=== PATIENT | male | born 1950 | race Caucasian/White ===

== ENCOUNTER 2017-03-23 00:42 | Emergency (ER) | payer MEDICARE, BC, OTHER, MEDICAID ==
[2017-03-23] MEDS ORDERED: Sodium Chloride 0.9% 10 ML Syringe FLUSH PRN (00:53)
[2017-03-23] MEDS ORDERED: Sodium Chloride 0.9% 1,000 ML IV ONE (00:53)
--- NOTE | 2017-03-23 00:56 | EDM.PDOC ---
ED HPI GENERAL MEDICAL PROBLEM - General Chief Complaint: Respiratory Problem Stated Complaint: Increased respirations, dspnea Time Seen by Provider: 03/23/17 00:47 Source of Information: Reports: Patient, EMS Notes Reviewed, Fpc Records, RN, RN Notes Reviewed History Limitations: Reports: No Limitations - History of Present Illness INITIAL COMMENTS - FREE TEXT/NARRATIVE: Patient is [facility] the ED at [facility] with concerns of possible aspiration pneumonia. Patient states he feels his breathing is more labored than usual and tachypnic. No cough. No chest pain. Patient states "I always have trouble with my bowels." No new focal neurological deficits outside of those from a previous CVA. No headache. No dizziness. Patient states he was just discharged from [facility] s/p right hemiarthroplasty. Patient apparently fell out of his wheelchair on 03/14/2017. Patient was diagnosed with a femoral fracture secondary to mechanical fall. Onset: Today Right hip Pain Score (Numeric/FACES): 5 - Related Data Allergies Allergy/AdvReac Type Severity Reaction Status Date / Time No Known Allergies Allergy Verified 03/23/17 01:28 Home Meds: Home Meds Acetaminophen [Tylenol] 650 mg PO Q4HR PRN 07/02/13 [History] Albuterol/Ipratropium [DuoNeb 3.0-0.5 MG/3 ML] 2.5 mg INH Q4HR PRN 07/02/13 [ History] Bisacodyl [Dulcolax] 1 tab PO BID PRN 07/02/13 [History] Calcium Carbonate/Vitamin D3 [Calcium 600 + Vit D 400] 1 tab PO DAILY 07/02/13 [ History] Clopidogrel [Plavix] 75 mg PO DAILY 07/02/13 [History] Fluticasone/Salmeterol [Advair 500-50] 1 puff INH BID 07/02/13 [History] Simvastatin [Zocor] 80 mg PO BEDTIME 07/02/13 [History] Atropine 1% [Isopto Atropine 1% Ophth Soln] 2 drop SL TID PRN #1 08/09/13 [Rx] Metoprolol Tartrate 12.5 mg PO BID #60 08/09/13 [Rx] Polyethylene Glycol 3350 [MiraLAX] 17 gm PO DAILY 03/07/15 [History] Sertraline [Zoloft] 25 mg PO BEDTIME 03/07/15 [History] Tiotropium [Spiriva HandiHaler] 1 cap INH DAILY 03/07/15 [History] traZODone HCl [Trazodone HCl] 25 mg PO BEDTIME 03/07/15 [History] Bisacodyl 10 mg RC DAILY PRN 03/23/17 [History] Doxycycline [Vibramycin] 100 mg PO Q12HR 7 Days #14 cap 03/23/17 [Rx] Hydrocodone/Acetaminophen [Hydrocodon-Acetaminophen 5-325] 1 each PO Q4HR PRN [History] Lactulose [Chronulac] 10 gm PO BID 03/23/17 [History] Loperamide HCl [Imodium A-D] 2 mg PO ASDIRECTED 03/23/17 [History] Pantoprazole Sodium 40 mg PO DAILY 03/23/17 [History] hydrOXYzine Pamoate [Hydroxyzine Pamoate] 25 mg PO Q4H PRN 03/23/17 [History] metFORMIN HCl [Metformin HCl] 500 mg PO BID 03/23/17 [History] Social & Family History - Tobacco Use Smoking Status *Q: Former Smoker Years of Tobacco use: 49 Used Tobacco, but Quit: Yes Month Tobacco Last Used: april Second Hand Smoke Exposure: No - Alcohol Use Days Per Week of Alcohol Use: 0 - Recreational Drug Use Recreational Drug Use: No Drug Use in Last 12 Months: No Recreational Drug Last Use: MANY YEARS AGO - Living Situation & Occupation Living situation: Reports: , Extended Care Facility ED ROS GENERAL - Review of Systems Review Of Systems: See Below Constitutional: Reports: Fever, Chills, Weakness HEENT: Reports: No Symptoms Respiratory: Reports: Shortness of Breath. Denies: Cough, Sputum Cardiovascular: Denies: Chest Pain, Palpitations GI/Abdominal: Denies: Abdominal Pain, Nausea, Vomiting Skin: Reports: No Symptoms Neurological: Reports: No Symptoms. Denies: Dizziness, Headache ED EXAM, GENERAL - Physical Exam Exam: See Below Exam Limited By: No Limitations General Appearance: Alert, No Apparent Distress, Obese Neck: Supple Respiratory/Chest: No Respiratory Distress, Decreased Breath Sounds Cardiovascular: Normal Peripheral Pulses, Regular Rate, Rhythm Peripheral Pulses: 2+: Radial (L), Radial (R) GI/Abdominal: Abnormal Bowel Sounds (Hypoactive) Neurological: Alert, Oriented, Other (patient has deficits from previous CVA but no new symptoms) Skin Exam: Warm, Dry, Intact, Normal Color, No Rash Course - Vital Signs Last Recorded V/S: Last Vital Signs Temp 38.9 C H 03/23/17 02:05 Pulse 120 H 03/23/17 02:05 Resp 24 H 03/23/17 02:05 BP 155/83 H 03/23/17 02:05 Pulse Ox 92 L 03/23/17 02:05 - Orders/Labs/Meds Orders: Active Orders 24 hr Category Date Time Status Chest 1V Frontal [CR] Stat Exams 03/23/17 00:52 Taken CULTURE BLOOD [BC] Stat Lab 03/23/17 01:21 Results CULTURE BLOOD [BC] Stat Lab 03/23/17 02:02 Results UA W/MICROSCOPIC [URIN] Stat Lab 03/23/17 00:54 Uncollected Ertapenem [INVanz] 1 gm Med 03/23/17 03:02 Ordered Sodium Chloride 0.9% [Normal Saline] 100 ml IV ONETIME Sodium Chloride 0.9% [Saline Flush] Med 03/23/17 00:53 Active 10 ml FLUSH ASDIRECTED PRN Blood Culture x2 Reflex Set [OM.PC] Stat Oth 03/23/17 00:49 Ordered Peripheral IV Insertion Adult [OM.PC] Routine Oth 03/23/17 00:53 Ordered Medication Orders Ertapenem 1 gm/ Sodium (Chloride) 100 mls @ 200 mls/hr IV ONETIME ONE Stop: 03/23/17 03:31 Sodium Chloride (Saline Flush) 10 ml FLUSH ASDIRECTED PRN PRN Reason: Keep Vein Open Labs: Laboratory Tests 03/23/17 03/23/17 03/23/17 Range/Units 01:21 01:21 01:21 WBC 13.3 H (4.0-10.0) x10^3/uL RBC 4.10 L (4.5-6.0) x10^6/uL Hgb 10.6 L D (14.0-18.0) g/dL Hct 34.0 L (40.0-52.0) % MCV 82.9 D (78.0-93.0) fL MCH 25.9 L (26.0-32.0) pg MCHC 31.2 L (32.0-36.0) g/dL RDW Coeff of Dona 15.4 H (10.0-15.0) % Plt Count 247 (130-400) x10^3/uL Add Manual Diff Yes Neutrophils % (Manual) 80 (50-80) % Band Neutrophils % 2 (0-6) % Lymphocytes % (Manual) 8 L (25-50) % Monocytes % (Manual) 7 (2-11) % Eosinophils % (Manual) 3 (0-4) % Toxic Granulation 1+ slight H Platelet Estimate Adequate Giant Platelets Rare H Polychromasia Rare Anisocytosis 2+ moderate H Ovalocytes 1+ slight H POC ABG pH (7.35-7.45) POC ABG pCO2 (35-45) mmHG POC ABG pO2 (80-105) mmHG POC ABG HCO3 (22-26) mmol/L POC ABG Total CO2 (23-27) mmol/L POC ABG O2 Sat (95-98) % POC ABG Base Excess (-2-3) mmol/L POC FiO2 Sodium 137 (136-145) mmol/L Potassium 3.9 (3.5-5.1) mmol/L Chloride 101 (98-107) mmol/L Carbon Dioxide 27 (21-32) mmol/L BUN 15 (7-18) mg/dL Creatinine 1.2 (0.70-1.30) mg/dL Est Cr Clr Drug Dosing TNP Estimated GFR (MDRD) > 60 Glucose 174 H (74-106) mg/dL Lactic Acid 2.3 H (0.4-2.0) mmol/L Calcium 9.9 (8.5-10.1) mg/dL Phosphorus 2.0 L (2.6-4.7) mg/dL Magnesium 1.4 L (1.8-2.4) mg/dL C-Reactive Protein 2.8 H (<=0.9) mg/dL POC Result Comm 03/23/17 Range/Units 02:15 WBC (4.0-10.0) x10^3/uL RBC (4.5-6.0) x10^6/uL Hgb (14.0-18.0) g/dL Hct (40.0-52.0) % MCV (78.0-93.0) fL MCH (26.0-32.0) pg MCHC (32.0-36.0) g/dL RDW Coeff of Dona (10.0-15.0) % Plt Count (130-400) x10^3/uL Add Manual Diff Neutrophils % (Manual) (50-80) % Band Neutrophils % (0-6) % Lymphocytes % (Manual) (25-50) % Monocytes % (Manual) (2-11) % Eosinophils % (Manual) (0-4) % Toxic Granulation Platelet Estimate Giant Platelets Polychromasia Anisocytosis Ovalocytes POC ABG pH 7.453 H (7.35-7.45) POC ABG pCO2 34 L (35-45) mmHG POC ABG pO2 54 L* (80-105) mmHG POC ABG HCO3 23 (22-26) mmol/L POC ABG Total CO2 24 (23-27) mmol/L POC ABG O2 Sat 90 L (95-98) % POC ABG Base Excess -1 (-2-3) mmol/L POC FiO2 0.21 Sodium (136-145) mmol/L Potassium (3.5-5.1) mmol/L Chloride (98-107) mmol/L Carbon Dioxide (21-32) mmol/L BUN (7-18) mg/dL Creatinine (0.70-1.30) mg/dL Est Cr Clr Drug Dosing Estimated GFR (MDRD) Glucose (74-106) mg/dL Lactic Acid (0.4-2.0) mmol/L Calcium (8.5-10.1) mg/dL Phosphorus (2.6-4.7) mg/dL Magnesium (1.8-2.4) mg/dL C-Reactive Protein (<=0.9) mg/dL POC Result Comm Called critical res Meds: Medications Generic Name Dose Route Start Last Admin Trade Name Freq PRN Reason Stop Dose Admin Ertapenem 1 gm/ Sodium 100 mls @ 200 mls/hr 03/23/17 03:02 Chloride IV 03/23/17 03:31 ONETIME ONE Sodium Chloride 10 ml 03/23/17 00:53 Saline Flush FLUSH ASDIRECTED PRN Keep Vein Open Discontinued Medications Generic Name Dose Route Start Last Admin Trade Name Freq PRN Reason Stop Dose Admin Sodium Chloride 1,000 mls @ 999 mls/hr 03/23/17 00:53 03/23/17 02:00 Normal Saline IV 03/23/17 01:53 999 mls/hr ONETIME ONE Administration Morphine Sulfate 2 mg 03/23/17 02:16 03/23/17 02:25 Morphine IVPUSH 03/23/17 02:17 2 mg ONETIME ONE Administration - Radiology Interpretation Free Text/Narrative:: CXR: Normal chest x-ray See scanned report in EMR Departure - Departure Time of Disposition: 02:58 Disposition: DC/Tfer to Assisted Care 63 Condition: Good Clinical Impression: Fever and chills Leukocytosis Qualifiers: Leukocytosis type: unspecified Qualified Code(s): D72.829 - Elevated white blood cell count, unspecified - Discharge Information Prescriptions: Doxycycline [Vibramycin] 100 mg PO Q12HR 7 Days #14 cap Instructions: Fever, Adult Referrals: Monroe Waters MD [Physician] - Forms: ED Department Discharge Additional Instructions: 1. Stay well hydrated and rest 2. Take antibiotic for the full coarse, even if you are feeling better 3. Call [facility] tomorrow to have your incision looked at 4. Call with any questions ED Communication - ED Communication Date/Time Date: 03/23/17 Time Called: 02:57 - Discussed Case With (1) Discussed Case With (1): Outpatient Provider Person/s Notified (1): Brooke Cornell - Conversation Summary Outpatient Provider Agreed to Follow-up on this Patient: Yes - Problem List Review Problem List Initiated/Reviewed/Updated: Yes - My Orders Last 24 Hours: My Active Orders 03/23/17 00:49 Blood Culture x2 Reflex Set [OM.PC] Stat 03/23/17 00:52 Chest 1V Frontal [CR] Stat 03/23/17 00:53 Sodium Chloride 0.9% [Saline Flush] 10 ml FLUSH ASDIRECTED PRN Peripheral IV Insertion Adult [OM.PC] Routine 03/23/17 00:54 UA W/MICROSCOPIC [URIN] Stat 03/23/17 01:21 CULTURE BLOOD [BC] Stat 03/23/17 02:02 CULTURE BLOOD [BC] Stat 03/23/17 03:02 Ertapenem [INVanz] 1 gm Sodium Chloride 0.9% [Normal Saline] 100 ml IV ONETIME - Assessment/Plan Last 24 Hours: My Active Orders 03/23/17 00:49 Blood Culture x2 Reflex Set [OM.PC] Stat 03/23/17 00:52 Chest 1V Frontal [CR] Stat 03/23/17 00:53 Sodium Chloride 0.9% [Saline Flush] 10 ml FLUSH ASDIRECTED PRN Peripheral IV Insertion Adult [OM.PC] Routine 03/23/17 00:54 UA W/MICROSCOPIC [URIN] Stat 03/23/17 01:21 CULTURE BLOOD [BC] Stat 03/23/17 02:02 CULTURE BLOOD [BC] Stat 03/23/17 03:02 Ertapenem [INVanz] 1 gm Sodium Chloride 0.9% [Normal Saline] 100 ml IV ONETIME
[2017-03-23] MEDS ORDERED: Morphine 2 MG/ML Syringe IVPUSH ONE (02:16)
[2017-03-23 02:21] VITALS: BP 155/83
[2017-03-23 02:27] LABS: CHLORIDE,CL 101 mmol/L (98-107); SODIUM,NA 137 mmol/L (136-145)
[2017-03-23] MEDS ORDERED: Ertapenem 1 GM in Sodium Chloride 0.9% 100 ML IV ONE (03:02)
== END 2017-03-23 04:20 ==
LOC: VM.ED 00:42
DX: D72.829 Elevated white blood cell count, unspecified (principal); R50.9 Fever, unspecified; Z79.899 Other long term (current) drug therapy; Z87.891 Personal history of nicotine dependence; Z86.73 Personal history of transient ischemic attack (TIA), and cerebral infarction without residual deficits
CPT/HCPCS: 36415; 36600; 71010; 80048; 82803; 83605; 83735; 84100; 85025; 86140; 87040; 96361; 96365; 96375; 99284; 99285; J1335; J2270; J7030; J7050

== ENCOUNTER 2019-07-10 09:07 | Day surgery (SDC) | payer MEDICARE, BC, OTHER, MEDICAID ==
[~2019-07-10 09:07] MED LIST: Sodium Chloride 0.9% 10 ML Syringe FLUSH PRN
[2019-07-10] MEDS ORDERED: Propofol 200 MG/20 ML SDV ONE ×2 (10:07→12:15)
[2019-07-10] MEDS ORDERED: fentaNYL 100 MCG/2 ML SDV ONE (10:07)
[2019-07-10] MEDS: Lactated Ringers 1,000 ML IV SCH (10:20)
[2019-07-10 14:15] VITALS: BP 108/78; PULSE 62
--- NOTE | 2019-07-10 16:23 | OR ---
PREOPERATIVE DIAGNOSIS: Positive FIT stool card. POSTOPERATIVE DIAGNOSES: 1. Minimal diverticulosis. 2. Floppy redundant tortuous colon. PROCEDURE: Colonoscopy. SURGEON: Tommy Pizarro M.D. ANESTHESIA: Monitored anesthesia care. BOWEL PREP: Fair to poor with particulate stool (nuts) present. The patient did require significant time suctioning for adequate visualization. Russell is a 69-year-old male who was brought to the endoscopy suite after discussing risks and benefits of the procedure. Informed consent was obtained for conscious sedation and colonoscopy with or without biopsy and/or polypectomy. We also discussed possibility of missed lesions. Pre-procedure exam was unremarkable. IV, oxygen, and monitors were placed. The patient was placed in the left lateral decubitus position. Sedation was administered and a digital rectal exam was performed which was unremarkable. Colonoscope was passed into the rectum and slowly advanced all the way to the cecum. Patient did have a very floppy, redundant, tortuous colon. This did require scope maneuvering as well as 2 people providing some abdominal pressure and palpation. Cecum was viewed and photographed. The colonoscope was slowly withdrawn and the mucosa was closed observed in a direct circumferential manner. The ascending colon was unremarkable. The transverse colon was unremarkable. The descending colon was unremarkable. The sigmoid colon revealed some minimal diverticulosis. Retroflexion was performed and rectal mucosa was unremarkable. Scope was removed. The patient tolerated the procedure well. The patient was monitored until that baseline status. Discharge instructions were reviewed and the patient was discharged in good condition. COMPLICATIONS: None. TOTAL TIME: 45 minutes. ESTIMATED BLOOD LOSS: None. RECOMMENDATIONS/FOLLOW-UP: The patient is good for the next 10 years on colon cancer screening. He can go ahead and resume his Plavix tomorrow. I would like to kindly thank Dr. Waters for this referral. DMB: 07/10/2019 13:10:36 MODL: 07/10/2019 16:19:11 /[id number]
== END 2019-07-10 14:00 | disposition home or self-care (01) ==
LOC: VM.SDS 09:07
PROVIDERS: ATTEND Family Medicine
DX: K57.30 Diverticulosis of large intestine without perforation or abscess without bleeding (principal); Q43.8 Other specified congenital malformations of intestine; E11.9 Type 2 diabetes mellitus without complications; J44.9 Chronic obstructive pulmonary disease, unspecified; E78.2 Mixed hyperlipidemia; K76.0 Fatty (change of) liver, not elsewhere classified; F41.1 Generalized anxiety disorder; K21.9 Gastro-esophageal reflux disease without esophagitis; I10 Essential (primary) hypertension; Z87.891 Personal history of nicotine dependence; Z86.73 Personal history of transient ischemic attack (TIA), and cerebral infarction without residual deficits; Z79.899 Other long term (current) drug therapy
CPT/HCPCS: 82962; J2704; J3010; J7120

== ENCOUNTER 2019-10-26 09:20 | Emergency (ER) | payer MEDICARE, BC, OTHER, MEDICAID ==
--- NOTE | 2019-10-26 10:41 | EDM.PDOC ---
ED HPI GENERAL MEDICAL PROBLEM - General Chief Complaint: General Stated Complaint: Sent by detention secondary to decreased eating Time Seen by Provider: 10/26/19 10:05 Source of Information: Reports: Patient, EMS, Custodial Records History Limitations: Reports: No Limitations - History of Present Illness INITIAL COMMENTS - FREE TEXT/NARRATIVE: Patient was sent over via EMS from the detention secondary to decreased eating over the last couple of days week. Patient was seen by travel nurse today and it was decided that he needed to be sent to the emergency room for further evaluation secondary to not eating well. Patient was seen by his primary care provider Dr. Damico a few days ago with a normal checkup Per the patient states he feels fine he has no complaints or signs or symptoms states he gets nauseated every now and then which he did today after drinking a sip of water and has been ongoing since he had a stroke with nothing new. I completely reviewed all systems with the patient and he states he has no complaints he is alert and oriented x4 he is neurologically intact only thing he is asking for his breakfast seeing how he missed being sent here he wants a [employer] Skyler cheese egg croissant and hashbrowns. And a diet minute Patient states he does not like the food at the detention and his sister usually brings him meals from out in town Associated Symptoms: Reports: No Other Symptoms - Related Data Allergies Allergy/AdvReac Type Severity Reaction Status Date / Time No Known Allergies Allergy Verified 10/26/19 10:01 Home Meds: Home Meds Acetaminophen [Tylenol] 650 mg PO Q4HR PRN 07/02/13 [History] Albuterol/Ipratropium [DuoNeb 3.0-0.5 MG/3 ML] 2.5 mg INH Q4HR PRN 07/02/13 [ History] Calcium Carbonate/Vitamin D3 [Calcium 600 + Vit D 400] 1 tab PO DAILY 07/02/13 [ History] Clopidogrel [Plavix] 75 mg PO DAILY 07/02/13 [History] Fluticasone/Salmeterol [Advair 500-50] 1 puff INH BID 07/02/13 [History] Simvastatin [Zocor] 80 mg PO BEDTIME 07/02/13 [History] bisacodyL [Dulcolax] 1 tab PO BID PRN 07/02/13 [History] Atropine 1% [Isopto Atropine 1% Ophth Soln] 2 drop SL TID PRN #1 08/09/13 [Rx] Metoprolol Tartrate 12.5 mg PO BID #60 08/09/13 [Rx] Polyethylene Glycol 3350 [MiraLAX] 17 gm PO DAILY 03/07/15 [History] Sertraline [Zoloft] 25 mg PO BEDTIME 03/07/15 [History] Tiotropium [Spiriva HandiHaler] 1 cap INH DAILY 03/07/15 [History] traZODone HCl [Trazodone HCl] 25 mg PO BEDTIME 03/07/15 [History] Bisacodyl 10 mg RC DAILY PRN 03/23/17 [History] Hydrocodone/Acetaminophen [Hydrocodon-Acetaminophen 5-325] 1 each PO Q4HR PRN [History] Lactulose [Chronulac] 10 gm PO BID 03/23/17 [History] Loperamide HCl [Imodium A-D] 2 mg PO ASDIRECTED 03/23/17 [History] Pantoprazole Sodium 40 mg PO DAILY 03/23/17 [History] hydrOXYzine pamoate [Hydroxyzine Pamoate] 25 mg PO Q4H PRN 03/23/17 [History] metFORMIN HCl [Metformin HCl] 500 mg PO BID 03/23/17 [History] Budesonide/Formoterol [Symbicort 160-4.5 MCG] 2 puff PO BID 07/02/19 [History] Cholecalciferol (Vitamin D3) [Vitamin D3] 1,000 units PO DAILY 07/02/19 [History ] Pantoprazole Sodium [Protonix] 40 mg PO DAILY 07/02/19 [History] Umeclidinium Brm/Vilanterol Tr [Anoro Ellipta 62.5-25 MCG] 1 puff DAILY [History] lisinopriL [Zestril] 5 mg PO DAILY 07/02/19 [History] Past Medical History HEENT History: Reports: Hard of Hearing Cardiovascular History: Reports: High Cholesterol, Hypertension Respiratory History: Reports: COPD, Pneumonia, Recurrent Gastrointestinal History: Reports: Chronic Constipation, GERD, Other (See Below) Other Gastrointestinal History: Dysphagia, + fecal occult test, 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, Genitourinary History: Reports: Chronic Renal Insuffiency Musculoskeletal History: Reports: Other (See Below) Other Musculoskeletal History: carpal tunnel syndrome, recent hip replacement due to fx hip, 03/15/2017 Neurological History: Reports: CVA, Speech Problems Other Neuro History: dysphagia, right sided weakness due to CVA Psychiatric History: Reports: Depression Endocrine/Metabolic History: Reports: Diabetes, Type II, Other (See Below) Other Endocrine/Metabolic History: hypercalcemia Hematologic History: Reports: Anemia Dermatologic History: Reports: Eczema - Infectious Disease History Infectious Disease History: Reports: MRSA Other Infectious Disease History: MRSA pneumonia 2012 - Past Surgical History GI Surgical History: Reports: Colonoscopy, EGD Neurological Surgical History: Reports: Intracranial Musculoskeletal Surgical History: Reports: Hip Replacement Social & Family History - Tobacco Use Smoking Status *Q: Unknown Ever Smoked - Living Situation & Occupation Living situation: Reports: , Extended Care Facility ED ROS GENERAL - Review of Systems Review Of Systems: See Below Constitutional: Reports: No Symptoms HEENT: Reports: No Symptoms Respiratory: Reports: No Symptoms Cardiovascular: Reports: No Symptoms Endocrine: Reports: No Symptoms GI/Abdominal: Reports: No Symptoms : Reports: No Symptoms Musculoskeletal: Reports: No Symptoms Skin: Reports: No Symptoms Neurological: Reports: No Symptoms Psychiatric: Reports: No Symptoms Hematologic/Lymphatic: Reports: No Symptoms Immunologic: Reports: No Symptoms ED EXAM, GENERAL - Physical Exam Exam: See Below Exam Limited By: No Limitations General Appearance: Alert, WD/WN, No Apparent Distress Ears: Normal External Exam, Normal Canal, Hearing Grossly Normal, Normal TMs Nose: Normal Inspection, Normal Mucosa, No Blood Throat/Mouth: Normal Inspection, Normal Lips, Normal Teeth, Normal Gums, Normal Oropharynx, Normal Voice, No Airway Compromise Head: Atraumatic, Normocephalic Neck: Normal Inspection, Supple, Non-Tender, Full Range of Motion Respiratory/Chest: No Respiratory Distress, Lungs Clear, Normal Breath Sounds, No Accessory Muscle Use, Chest Non-Tender Cardiovascular: Normal Peripheral Pulses, Regular Rate, Rhythm, No Edema, No Gallop, No JVD, No Murmur, No Rub GI/Abdominal: Normal Bowel Sounds, Soft, Non-Tender, No Organomegaly Back Exam: Normal Inspection, Full Range of Motion Extremities: Normal Inspection, Non-Tender, Normal Capillary Refill, Other ( Patient has decreased range of motion in upper and lower right extremity secondary to a CVA full range of motion with left). No: Normal Range of Motion Neurological: Alert, Oriented, CN II-XII Intact, Normal Cognition, Other ( Patient carries a full conversation and answers all questions appropriately follows all commands) Psychiatric: Normal Affect, Normal Mood Skin Exam: Warm, Dry, Intact, Normal Color, No Rash Course - Vital Signs Text/Narrative:: All vital signs were normal patient's exam was normal patient actively eating breakfast here in the emergency room no acute findings I will discharge patient back to follow-up care with his primary care provider Last Recorded V/S: Last Vital Signs Temp 36.1 C 10/26/19 09:25 Pulse 67 10/26/19 09:25 Resp 18 10/26/19 09:25 BP 104/69 10/26/19 09:25 Pulse Ox 97 10/26/19 09:25 Departure - Departure Time of Disposition: 10:40 Disposition: Home, Self-Care 01 Condition: Good Clinical Impression: Normal exam - Discharge Information *PRESCRIPTION DRUG MONITORING PROGRAM REVIEWED*: No *COPY OF PRESCRIPTION DRUG MONITORING REPORT IN PATIENT JALYN: No Referrals: Monroe Waters MD [Primary Care Provider] - Forms: ED Department Discharge Additional Instructions: Diagnosis was a normal exam Follow-up with your primary care provider in the next 48 to 72 hours return to the emergency room if anything changes Continue all medications as directed by your primary care provider Sepsis Event Note - Evaluation Sepsis Screening Result: No Definite Risk - Focused Exam Vital Signs: Vital Signs Temp Pulse Resp BP Pulse Ox 10/26/19 09:25 36.1 C 67 18 104/69 97 Date Exam was Performed: 10/26/19 Time Exam was Performed: 10:43 - Problem List & Annotations (1) Normal exam SNOMED Code(s): 092772126 Code(s): Z00.00 - ENCNTR FOR GENERAL ADULT MEDICAL EXAM W/O ABNORMAL FINDINGS Status: Acute Current Visit: Yes
[2019-10-26 11:48] VITALS: BP 108/65; PULSE 65
== END 2019-10-26 11:35 | disposition home or self-care (01) ==
LOC: VM.ED 09:20
DX: Z00.00 Encounter for general adult medical examination without abnormal findings (principal); E78.00 Pure hypercholesterolemia, unspecified; J44.9 Chronic obstructive pulmonary disease, unspecified; K21.9 Gastro-esophageal reflux disease without esophagitis; I12.9 Hypertensive chronic kidney disease with stage 1 through stage 4 chronic kidney disease, or unspecified chronic kidney disease; N18.9 Chronic kidney disease, unspecified; F32.9 Major depressive disorder, single episode, unspecified; E11.9 Type 2 diabetes mellitus without complications; Z79.84 Long term (current) use of oral hypoglycemic drugs; Z86.73 Personal history of transient ischemic attack (TIA), and cerebral infarction without residual deficits; Z79.02 Long term (current) use of antithrombotics/antiplatelets
CPT/HCPCS: 99283; 99284-GF

== ENCOUNTER 2019-10-28 11:58 | Inpatient (IN) | payer MEDICARE, BC, OTHER, MEDICAID ==
[2019-10-28] MEDS ORDERED: Sodium Chloride 0.9% 10 ML Syringe FLUSH PRN (12:14)
[2019-10-28 13:40] LABS: ANION GAP 21.7 mmol/L (10-20); CHLORIDE,CL 103 mmol/L (98-107); SODIUM,NA 140 mmol/L (136-145)
[2019-10-28] MEDS ORDERED: Ondansetron 4 MG/2 ML SDV IVPUSH PRN (13:56)
[2019-10-28] MEDS ORDERED: Atropine 1% Ophth Soln 5 ML BOTTLE SL PRN (13:59)
--- NOTE | 2019-10-28 14:48 | CR ---
[id number] RAD/RAD Chest PA or AP 1V EXAM: SINGLE VIEW CHEST. INDICATION: RHONCHI COMPARISON: CORRELATION IS MADE WITH 2016 FINDINGS: The lungs are clear The cardiomediastinal contour is stable IMPRESSION: NO PNEUMONIA OR EDEMA Driss Ryan MD 10/28/19 1402 Thank you for allowing us to participate in the care of your patient.
[2019-10-28] MEDS: Sodium Chloride 0.9% 1,000 ML IV SCH ×2 (15:09→19:55)
--- NOTE | 2019-10-28 19:28 | HP ---
CHIEF COMPLAINT: Renal failure. HISTORY OF PRESENT ILLNESS: This is a 69-year-old male who has been feeling poorly over the last several weeks with weight loss 20 pounds during that time, poor appetite, not wanting to eat. The patient reports throwing up, but no diarrhea. Denies abdominal pain. No fever. No chills. Overall, even felt he was just more depressed due to quarantine, but when he was finally able to get his lab work checked, his creatinine was up to 7.39, BUN 118, when a year ago it was 1.2 creatinine, BUN 16. He does have diabetes. He has been on metformin that was stopped recently to see if that would help his stomach symptoms. His glucose was only 81 yesterday. He has also been on lisinopril, but no diuretics. I did not find any record of him getting NSAIDs. He has not had any burning with urination. He has not had any problems with urine output. The patient does have a history of stroke in 2008, posterior circulation. He otherwise came over to the ER over the weekend due to being unwell for the past week, but no lab work was done as the patient was eating when he came to the ER, and it was overall felt that he could be admitted locally due to this subacute presentation and no acute indications for dialysis. I spoke with the patient. He does not wish to be transferred. He does not wish for CPR. I also informed his of this. ALLERGIES: None. MEDICATIONS: His medication list is reviewed from the [facility] and it currently includes Anoro inhaler; vitamin D 3000 units daily; lisinopril 5 mg daily; metformin was 500 mg twice daily, recently stopped; nystatin topicals; senna capsules 2 daily; simvastatin 80 mg daily; atropine eye drops; Dulcolax as needed; Plavix 75 mg daily; metoprolol 12.5 mg b.i.d.; Protonix 40 mg daily; Zoloft 150 daily; and trazodone 50 mg at bedtime. PAST MEDICAL HISTORY: Does include: 1. Previous hospitalization for a GI bleed in 2016. He is on the immediate metabolizer of Plavix due to some mutation of [id number]. Previous carpal tunnel, never had surgery. 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 Had an ICU admit that was prolonged. Eventually was able to get trach and G-tube and home with his , but [facility]. 2. COPD. He is a former smoker. 3. Depression. 4. Dysphagia. 5. Fatty liver. 6. Previous femoral neck fracture. 7. Generalized anxiety disorder. 8. GERD. 9. Hearing loss. 10.History of MRSA infection with pneumonia in the past. 11.Essential hypertension. 12.Iron deficiency anemia. 13.Hyperlipidemia. 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 15.Renal insufficiency back in 2013. His creatinine went up to 1.8, but improved by the fall. 16.Osteoporosis. 17.Sleep-related hypoventilation. 18.Type 2 diabetes without long-term insulin use. PAST SURGICAL HISTORY: Includes endoscopies, rotator cuff arthroscopy surgery of the shoulder in 2007, dental extractions, hip prosthesis in 2017 for fracture. SOCIAL HISTORY: The patient is . He was previously . He has previous deployment to [place]. His is a retired commercial management accountant. The patient is a nondrinker and nonsmoker. He does have a daughter who lives locally, [place]. FAMILY HISTORY: Unable to obtain from the patient. REVIEW OF SYSTEMS: General: The patient has had weight loss. He is aware of it himself. He lost about 10 pounds in 2 months prior to just a couple weeks ago, now he has lost about 20 pounds. HEENT: No trouble swallowing. Cardiac: No chest pain. No palpitations. Respiratory: He has not had a cough or felt short of breath. Abdomen: He has had poor appetite, some nausea, and even vomiting. Otherwise, no diarrhea or constipation. Psychologic: He has been down, just not feeling as well overall. Skin: He has not had any rashes or itching. Otherwise, all systems reviewed and found to be negative unless otherwise stated. PHYSICAL EXAMINATION: Vital signs: His weight is 74.8 kg on the bed scale, temperature 97.5, pulse 60, blood pressure 126/81, respiratory rate 16, and O2 of 100 on room air. General: He is in no acute distress. HEENT: Mucous membranes are not overly dry Heart: Regular rate and rhythm. S1, S2 without murmur. Lungs: Lung sounds are clear to auscultation, but he did have some rhonchi noted over the right base. No wheezing. Abdomen: Nondistended, nontender. Extremities: Dry and cool. No sores noted other than a slight abrasion over the right hip. Mental Status: He is alert. He is orientated x3. He does have some expressive aphasia, but he is able to make his needs known. Skin: He has some petechiae and bruising. Slightly pale LABORATORY DATA: His lab work from today would be white count 10, hemoglobin 14.2, platelets 107, ESR 17. Sodium 140, potassium 5.7, chloride 103, bicarb 21, BUN 131, creatinine 7.3, GFR 7, calcium 10.4, bilirubin is 0.9, AST 29, ALT 22, alkaline phosphatase 89, CRP 0.2, albumin 3.7. CK 252 normal, troponin 0.04 normal. UA shows small leukocyte esterase and moderate occult blood, but pending the rbc and wbc's, however, looks like possibly a full field of wbc's are noted and few to moderate bacteria. Again, the patient has no dysuria or blood in his urine. ASSESSMENT AND PLAN: 1. Acute renal failure. Etiology is unclear. We will culture the urine. It is possible he has some inflammatory condition; however, his inflammation markers are negative. Doubt it is obstructive. He only has 150 onBladder scan. Very likely the patient could have gotten dehydrated due to his poor oral intake over the last few weeks and may have went into an acute tubular necrosis. At any rate, the patient is not wishing to pursue any aggressive measures like dialysis. We will continue to monitor and if any urgent indications for dialysis, we will reassess with the patient, but currently he is not having any. He has no history of congestive heart failure. I will give him normal saline at 200 mL/h and monitor his urine output. Place a catheter if needed. Repeat lab work in the morning. 2. Thrombocytopenia. This is new. It was noted on his lab work yesterday. We will repeat tomorrow. 3. Pyuria. Could be related to his renal failure. We will culture the urine. 4. Mild malnutrition. It is possible his albumin will worsen when he is less dehydrated. 5. Hyperkalemia. This is mostly due to renal failure. His anion gap is 21, glucose is normal, and his bicarb is normal at 21. It was slightly lower yesterday. No urgent indications for treatment for hyperkalemia. He was at 5.5 yesterday. We will monitor repeat tomorrow and decide if further treatments are needed. 6. Type 2 diabetes, on oral agents without any known complications. We will do q.i.d. Accu-Cheks. We will order insulin if needed. 7. Poor appetite. This is presumably due to the renal failure. It is possible that he is uremic, but at times he was eating. We will just see how he does. 8. Depression, possibly worsened by the quarantine. His is concerned he just wants to give up. Certainly, the patient has had a complicated medical history with previous stroke. At this point, we will respect his wishes and change him over to a code level 3. Home meds continued. 9. History of basilar artery stroke. The patient will remain on his Plavix, but if bleeding issues, this may need to be discontinued. PLAN: The patient is admitted for acute cares after feeling unwell for at least 1 week. He was found to have renal failure. We will give him IV fluids. We will watch lab work. We will monitor with telemetry. His EKG did also not show any changes that were concerning for hyperkalemia. We will monitor in's and out's closely and see how he does over the next few days. We will stop his lisinopril, but continue his other home medications. We will give him IV Zofran if needed for nausea. He is a code level 3. For DVT prophylaxis due to renal failure and low platelets, I am going to hold off on any heparin for now. We will put SCDs in place. JANEA: 10/28/2019 17:49:37 MODL: 10/28/2019 19:22:07 /[id number] NATHAN
[2019-10-28] MEDS: traZODone 50 MG Tab PO SCH (19:49)
[2019-10-28] MEDS: Metoprolol Tartrate 25 MG Tab PO SCH (19:49)
[2019-10-29] MEDS: Sodium Chloride 0.9% 1,000 ML IV SCH ×5 (01:01→20:36)
[2019-10-29 06:46] LABS: ANION GAP 18.1 mmol/L (10-20)
[2019-10-29] MEDS: Sertraline 50 MG Tab PO SCH (08:19)
[2019-10-29] MEDS: Metoprolol Tartrate 25 MG Tab PO SCH ×2 (08:19→19:29)
[2019-10-29] MEDS: Pantoprazole 40 MG Tab.CR PO SCH (08:19)
[2019-10-29] MEDS: Clopidogrel 75 MG Tab PO SCH (08:19)
--- NOTE | 2019-10-29 13:45 | PN ---
Progress Note for MIGUEL DENG Date: 10/29/2019 Room #: VM.202 SUBJECTIVE: This is hospital day #2 on a 69-year-old admitted yesterday for renal failure, which was likely occurring over the last more than 1 week. He has been getting IV fluids. He has been having incontinence of urine. His first bladder scan was only 150. He was resting when I entered the room. He wakes up and answers questions. He denies that he is in any pain. He is eating 20% of his breakfast, did have 100% of his snack yesterday. He is not having any cough or trouble breathing. Chest x-ray did not show any infiltrate. Urine did show wbc's. He had no UTI symptoms. The urine was sent off for culture. White count has normalized and he has been afebrile. Objectively, his weight 82.4 kg, which is up like 16 pounds since yesterday. Discussed that possibly his admission weight was not correct because he was down like 20 pounds from the week before, however, he has lost weight. OBJECTIVE: Vital Signs: His temperature is 96.7, pulse 72, blood pressure 146/73, respiratory rate 16, and O2 of 95% on room air. General: He is in no acute distress. He is just resting in bed. He still appears mildly pale, but his skin is now manufacturing engineer paint all extremities. He does have some expressive aphasia. Heart: Regular rate and rhythm without murmur noted. Lungs: Lung sounds were clear to auscultation today without crackles or wheezes. Abdomen: Nondistended, nontender. Extremities: He does have some right-sided weakness from his previous stroke. LABORATORY DATA: Lab work did show his white count down to 6.3; hemoglobin down to 12.2, probably hemodilution; platelets down to 80. Sodium 143, potassium 5.1, chloride 108, bicarb 22, BUN 121, creatinine 6.3, glucose 82, calcium 9.1. All Accu-Cheks were excellent under 100. ASSESSMENT AND PLAN: 1. Renal failure, etiology unclear, but likely more subacute. He has no evidence of urinary retention. He was not overly dehydrated, but he is having some improvement with IV fluids. Potentially, he could have some acute tubular necrosis. We are culturing the urine to ensure that he has no infection. He is not on any antibiotics. We will repeat lab work tomorrow. We will do bladder scans and place a Marcelino for strict I and Os if indicated. 2. Thrombocytopenia. This is new. He does not have any bleeding issues. He does have slight bruising over his forearms. We will repeat lab work tomorrow. 3. Pyuria. Again, we are culturing urine. 4. Mild malnutrition. We will repeat lab work tomorrow and encourage a diet. 5. Hyperkalemia. This resolved and now that his kidney function has improved, we did no other intervention, and we will take him off telemetry. 6. Type 2 diabetes, well controlled, off medications. We will discontinue Accu-Cheks. 7. Poor appetite possibly due to uremia. We will encourage a diet. 8. Depression, recently worsening due to the quarantine. Potentially nursing is talking about getting him up in a wheelchair and even outside to see his . Unfortunately, he also has a sister who has a today and he is not able to be there for it. He may be able to watch it over his device. 9. History of basilar artery stroke. He is on Plavix. Other than bruising, he is not having any bleeding problems. 10. Essential hypertension we will monitor off lisinopril PLAN: At this point, the patient will continue acute cares. I will continue his normal saline at 200 mL/h. He is already having his lisinopril on hold and his blood pressure is just going up slightly. If it goes up too high, we will readjust fluids. We will check a bladder scan and place a Marcelino if needed for strict ins and outs. I will discontinue telemetry. We will repeat all lab work tomorrow. He is on SCDs for DVT prophylaxis. MKA: 10/29/2019 13:08:42 MODL: 10/29/2019 13:40:30 /[id number] NATHAN
[2019-10-29] MEDS: traZODone 50 MG Tab PO SCH (19:28)
[2019-10-30] MEDS: Sodium Chloride 0.9% 1,000 ML IV SCH ×2 (01:42→06:37)
[2019-10-30 07:18] LABS: ANION GAP 17.5 mmol/L (10-20)
[2019-10-30] MEDS: Pantoprazole 40 MG Tab.CR PO SCH (07:39)
[2019-10-30] MEDS: Metoprolol Tartrate 25 MG Tab PO SCH ×2 (07:39→20:38)
[2019-10-30] MEDS: Clopidogrel 75 MG Tab PO SCH (07:40)
[2019-10-30] MEDS: Sertraline 50 MG Tab PO SCH (07:40)
[2019-10-30] MEDS: cefTRIAXone 1 GM Vial IVPUSH SCH (09:59)
[2019-10-30] MEDS: Lactated Ringers 1,000 ML IV SCH ×2 (11:25→17:52)
--- NOTE | 2019-10-30 18:04 | PN ---
Progress Note for MIGUEL DENG Date: 10/30/2019 Room #: VM.202 SUBJECTIVE: This is hospital day #3 on a 69-year-old admitted with renal failure. The patient has had some improvement in kidney function, but he had been sleeping mostly yesterday, was not eating and drinking well, but he is more alert this morning. Feels like drinking and eating. He denies pain still. No abdominal pain or dysuria. However, urine culture is showing some gram-negative rods. He has been afebrile. He has not had any urinary retention. Blood pressures are coming up now, off the lisinopril. He has not had any shortness of breath. OBJECTIVE: Vital Signs: His weight is 85.5 kg, temperature 96.3, pulse 71, blood pressure 158/89, respiratory rate 18, and O2 of 96 on room air. General: He is in no acute distress. Heart: Regular rate and rhythm. S1, S2 without murmur. Lungs: Lung sounds do show some decrease in the bases and slight rhonchi noted bilaterally. Abdomen: Nondistended, nontender. Extremities: Warm and dry. No edema. Mental Status: He is alert. He does have expressive aphasia. He seems to be in better spirits today. LABORATORY DATA: Lab work shows his white count at 5.8, hemoglobin 11.2, platelets at 62. Sodium 147, potassium 4.5, chloride 114, bicarb 20, BUN 92, creatinine 4.9, glucose 82, albumin 2.7. Urine culture is showing gram-negative rods, Citrobacter. ASSESSMENT AND PLAN: 1. Renal failure probably subacute, possibly some dehydration that went into acute tubular necrosis. He is improving with IV fluids. His blood pressure is up. I am going to decrease the rate to 150. I am also going to give him lactated Ringer's and encourage oral fluid intake due to hypernatremia. 2. Bacteriuria with Citrobacter, probable urinary tract infection. Given his renal failure, I am going to empirically treat him with IV Rocephin. 3. Thrombocytopenia. This is new. He has not had any bleeding issues. We will monitor and repeat tomorrow. 4. Mild malnutrition. We will encourage diet. 5. Hyperkalemia. This is resolved. 6. Type 2 diabetes, well controlled, off medications. 7. Poor appetite, likely due to uremia. Seems like he is improving with this. We will continue to monitor. 8. Depression, worsening due to the quarantine. He is looking for to getting to see his real soon. 9. History of basilar artery stroke, on Plavix. 10.Essential hypertension. We are still monitoring, off lisinopril. If he stays up over the 150s and into the 160 range, I will start him on amlodipine. PLAN: At this point, the patient will continue acute cares. I will switch the fluids from normal saline to LR and change rate to 150 per hour. I will start him on some IV Rocephin. We will continue with bladder scanning and place Marcelino if he is retaining urine. Otherwise, for DVT prophylaxis, he is on SCDs. MKA: 10/30/2019 17:21:26 MODL: 10/30/2019 17:55:16 /[id number]
[2019-10-30] MEDS: traZODone 50 MG Tab PO SCH (20:38)
[2019-10-31] MEDS: Lactated Ringers 1,000 ML IV SCH ×5 (00:09→20:28)
[2019-10-31 07:20] LABS: ANION GAP 17.3 mmol/L (10-20)
[2019-10-31] MEDS: Metoprolol Tartrate 25 MG Tab PO SCH ×2 (09:03→20:25)
[2019-10-31] MEDS: Clopidogrel 75 MG Tab PO SCH (09:04)
[2019-10-31] MEDS: Pantoprazole 40 MG Tab.CR PO SCH (09:04)
[2019-10-31] MEDS: Sertraline 50 MG Tab PO SCH (09:04)
[2019-10-31] MEDS: cefTRIAXone 1 GM Vial IVPUSH SCH (09:04)
--- NOTE | 2019-10-31 09:28 | PN ---
Progress Note for MIGUEL DENG Date: 10/31/2019 Room #: VM.202 SUBJECTIVE: A 69-year-old, hospital day #4, for renal failure. The patient feels like he is improving. He has been eating better. He ate some ice cream even this morning. He has been drinking better. He has still been getting IV fluids. He is incontinent post voids. Estimated postvoid timing is around 260 at the most. He has been afebrile. He was started on IV antibiotics for UTI yesterday. He denies any pain. Denies any cough or shortness of breath. Blood pressures are running higher in the 160s off the lisinopril. He is not having any headaches. He does have a history of stroke. OBJECTIVE: Vital Signs: His weight is 88.4 kg, temperature 96.3, pulse 64, blood pressure 163/82, respiratory rate 18, and O2 of 95% on room air. General: He is in no acute distress. Heart: Regular rate and rhythm. S1, S2 without murmur. Lungs: Lung sounds are decreased, but no crackles or wheezes appreciated today. Abdomen: Soft, nontender, nondistended. Positive bowel sounds. Extremities: Warm and dry. No edema. He is able to raise up that right arm today. His sheryl area did not show any skin breakdown. Aides were working with him currently. He denies that he has had any bowel movements. LABORATORY DATA: Lab work today did show his white count at 6.9, hemoglobin 10.9, platelets 57, just down slightly from yesterday. Sodium 145, potassium 4.3, chloride 114, bicarb 18, BUN 69, creatinine 3.6, glucose 91, calcium 8.8. ASSESSMENT: 1. Renal failure, likely subacute with some dehydration, going into acute tubular necrosis. He has improved with IV fluids. We will slow down to 100 per hour and repeat Sunday. 2. Essential hypertension, uncontrolled off lisinopril. We will start amlodipine today. 3. Urinary tract infection with Citrobacter. He is on IV Rocephin, day #2. 4. If oral intake is improved, he can switch over to oral agents tomorrow. 5. Thrombocytopenia. This is new. It is stable. No acute bleeding. We will continue to monitor. 6. Mild malnutrition. We will continue to encourage a diet. 7. Hyperkalemia, resolved. 8. Type 2 diabetes, well controlled off medications. 9. Uremia. This is improving. His appetite is improving. 10.Depression. He is hopeful to see his real soon. 11.History of basal artery stroke. He is on Plavix. PLAN: At this point, the patient will continue on acute cares. He will continue with IV fluids. He will continue with SCDs for DVT prophylaxis. He will get a dose of IV Rocephin today and possibly be able to switch over to an oral antibiotic tomorrow, even Ceftin, to complete a 5-day course. We will continue bladder scans. Anticipate he will be stable for discharge back to the [facility] in the next 1 to 2 days. Likely due to the COVID situation he will need testing and arrangements through [facility] to get him back to the [facility]. He is improving, but he is just not stable enough to go back to the [facility] yet today. I will try to update his . JANEA: 10/31/2019 08:38:02 MODL: 10/31/2019 09:08:16 /[id number] NATHAN
[2019-10-31] MEDS: amLODIPine 5 MG Tab PO SCH (09:50)
[2019-10-31] MEDS: traZODone 50 MG Tab PO SCH (20:25)
[2019-11-01] MEDS: Lactated Ringers 1,000 ML IV SCH ×2 (06:18→16:17)
[2019-11-01] MEDS: cefTRIAXone 1 GM Vial IVPUSH SCH (09:29)
[2019-11-01] MEDS: Sertraline 50 MG Tab PO SCH (09:35)
[2019-11-01] MEDS: amLODIPine 5 MG Tab PO SCH (09:39)
[2019-11-01] MEDS: Pantoprazole 40 MG Tab.CR PO SCH (09:40)
[2019-11-01] MEDS: Metoprolol Tartrate 25 MG Tab PO SCH ×2 (09:40→21:22)
[2019-11-01] MEDS: Clopidogrel 75 MG Tab PO SCH (09:41)
--- NOTE | 2019-11-01 12:06 | PN ---
Progress Note for MIGUEL DENG Date: 11/01/2019 Room #: VM.202 CHIEF COMPLAINT: Renal failure. SUBJECTIVE: This is hospital day #5 for renal failure. The patient does not offer any specific complaints this morning. He still is having some trouble with the types of foods that he is eating, however, he is trying. The patient is continuing on IV fluids which has improved his creatinine. The patient has a history of chronic renal failure and on dialysis. The patient currently does not have any shortness of breath or cough. The patient denies any chest pain or palpitations. The patient denies any abdominal pain. No nausea or vomiting. No focal neurological deficits that are new. The patient is currently on antibiotics for a UTI. The patient does have a history of a stroke. OBJECTIVE: Vital Signs: Blood pressure 155/97, temperature 98, pulse is 68, respirations are 16, oxygen saturation 98% on room air. Current weight is 192 pounds. General: The patient is not in any acute distress. The patient is cooperative. Heart: Regular rate and rhythm. S1, S2 without murmur. Respiratory: Lungs are somewhat decreased, but clear throughout. Abdomen: Soft and nontender. Bowel sounds are active x4. Extremities: Warm and dry. No edema. LABORATORY STUDIES: None. ASSESSMENT: 1. Renal failure. Continue the patient on IV fluids. Encourage p.o. intake. We will recheck laboratory work tomorrow. 2. Essential hypertension, under better control. The patient is tolerating amlodipine without any problems. 3. Urinary tract infection with Citrobacter koseri. The patient is on day #3 on IV Rocephin. 4. Decreased oral intake. The patient is working on increasing his oral intake. Continue with IV fluids. 5. Thrombocytopenia. Stable. We will check blood work tomorrow. There is no active bleeding. 6. Mild malnutrition. 7. Hyperkalemia, resolved. 8. Type 2 diabetes, well controlled off medications. 9. Uremia. This is improving. 10.Depression. 11.History of basal artery stroke. The patient is on Plavix. PLAN: Continue with acute cares for now. We will continue the patient on IV fluids. Continue with IV Rocephin, will switch to orals at time of discharge. We will continue with bladder scans. We will check laboratory work tomorrow morning. The patient's creatinine has been improving. I do anticipate discharge back to the [facility] in the next couple of days. The patient was tested for COVID in preparation for return back to the [facility]. TB: 11/01/2019 11:34:57 MODL: 11/01/2019 11:48:21 /[id number]
[2019-11-01] MEDS: traZODone 50 MG Tab PO SCH (21:22)
[2019-11-02] MEDS: Lactated Ringers 1,000 ML IV SCH ×2 (02:40→12:57)
[2019-11-02] MEDS: cefTRIAXone 1 GM Vial IVPUSH SCH (07:24)
[2019-11-02] MEDS: Pantoprazole 40 MG Tab.CR PO SCH (07:29)
[2019-11-02] MEDS: amLODIPine 5 MG Tab PO SCH (07:30)
[2019-11-02] MEDS: Clopidogrel 75 MG Tab PO SCH (07:30)
[2019-11-02] MEDS: Sertraline 50 MG Tab PO SCH (07:31)
[2019-11-02] MEDS: Metoprolol Tartrate 25 MG Tab PO SCH ×2 (07:31→19:43)
[2019-11-02] MEDS: Bisacodyl 5 MG Tab PO PRN (07:33)
[2019-11-02 08:20] LABS: ANION GAP 17.7 mmol/L (10-20)
--- NOTE | 2019-11-02 12:15 | PN ---
Progress Note for MIGUEL DENG Date: 11/02/2019 Room #: VM.202 CHIEF COMPLAINT: Renal failure. SUBJECTIVE: This is hospital day #6 for renal failure. The patient offers no specific complaints this morning. The patient states that he is tolerating foods better. According to nursing staff, the patient would like to "eat only junk food." The patient is continued on IV fluid as his creatinine has greatly improved. The patient's creatinine today is 2.7. The patient is currently on IV push Rocephin for UTI. The patient has a chronic renal failure history and is on dialysis. The patient has not had any nausea or vomiting. No chest pain or shortness of breath. The patient has not had any palpitations or cough. The patient does have a history of a stroke. OBJECTIVE: Vital signs: Blood pressure 159/85, pulse is 66, temperature is 96.3, respirations are 16, oxygen saturation 94%. Respiratory: Lungs are clear to auscultation, no adventitious breath sounds. Cardiovascular: No murmurs. Regular rate and rhythm. S1, S2 are normal. Abdomen: Soft and nontender. Bowel sounds are active x4. Extremities: No edema. Extremities are warm and dry. LABORATORY DATA: CBC; white blood cell count 7.9, hemoglobin 12.0, hematocrit 35.8, platelets are 258,000. BMP; sodium was 142, potassium 3.7, chloride is 106, CO2 is 23, anion gap is 17.7, BUN is 42, creatinine 2.7, GFR is 24, calcium is 8.9, glucose is 99. ASSESSMENT: 1. Renal failure. Continue with IV fluids. Encourage p.o. intake. We will recheck laboratory work tomorrow morning. 2. Essential hypertension, under fair control. The patient is tolerating his amlodipine. He may benefit from an increase of his amlodipine. 3. Urinary tract infection with Citrobacter koseri. We will stop the patient's Rocephin today and start the patient on p.o. Bactrim as his culture and sensitivity shows he is most sensitive to Bactrim. 4. Decreased oral intake. The patient is doing better with his oral intake. We will continue on IV fluids. The patient does not have any abdominal complaints. 5. Thrombocytopenia. Stable. Continue to check on daily basis. The patient has not had any signs of active bleeding. 6. Mild malnutrition. 7. Hyperkalemia, resolved. 8. Type 2 diabetes, well controlled off medications. 9. Uremia. This is improving. 10.Depression. 11.History of basal artery stroke. The patient is on Plavix. PLAN: We will continue acute cares for now. We will discontinue Rocephin and switch the patient to Bactrim. Continue with IV fluids as his renal failure has been improving and the patient's p.o. intake is not quite adequate. We will recheck lab work tomorrow morning. I do anticipate discharge back to the [facility] hopefully tomorrow. COVID testing pending. Dr. Brooke Cornell will resume care of this patient tomorrow morning. TB: 11/02/2019 09:46:27 MODL: 11/02/2019 11:02:28 /[id number] MTDD
[2019-11-02] MEDS: traZODone 50 MG Tab PO SCH (19:44)
[2019-11-03] MEDS: Metoprolol Tartrate 25 MG Tab PO SCH (07:32)
[2019-11-03] MEDS: Sertraline 50 MG Tab PO SCH (07:32)
[2019-11-03] MEDS: Bisacodyl 5 MG Tab PO PRN (07:32)
[2019-11-03] MEDS: amLODIPine 5 MG Tab PO SCH (07:33)
[2019-11-03] MEDS: Clopidogrel 75 MG Tab PO SCH (07:33)
[2019-11-03] MEDS: Pantoprazole 40 MG Tab.CR PO SCH (07:33)
[2019-11-03] MEDS ORDERED: amLODIPine 5 MG Tab PO SCH (08:00)
[2019-11-03] MEDS ORDERED: Sulfamethoxazole/Trimethoprim 800-160 MG Tab PO SCH (08:00)
[2019-11-03] MEDS ORDERED: Lisinopril 5 MG Tab PO SCH (08:00)
[2019-11-03 10:34] VITALS: BP 138/83; PULSE 74
--- NOTE | 2019-11-03 20:36 | DISCH ---
PRIMARY DISCHARGE DIAGNOSIS: Acute renal failure, possibly prerenal that went into acute tubular necrosis, but unclear definitive etiology. The patient refused for dialysis or transfer to [facility]. He improved with IV fluids from a creatinine of over 7 on admission to 2.3 on discharge. SECONDARY DISCHARGE DIAGNOSES: Include: 1. Essential hypertension, poorly controlled due to stopping lisinopril. 2. Type 2 diabetes, well controlled even off metformin, not on insulin. 3. Previous basilar artery stroke, on Plavix. 4. Thrombocytopenia, new with bruising, but no other sign of bleeding, but previous history of gastrointestinal bleeding. The patient has not had a platelet check since 2017, and it was normal at that time. 5. Urinary tract infection related to Citrobacter. Completed 4 days of IV Rocephin. The patient never had any symptoms. No antibiotics prescribed on discharge. 6. Poor appetite, likely due to uremia. This has resolved. The patient is eating more, especially snacks. He prefers like sherbert, asking for cheese burgers on discharge. 7. Depression worsened recently due to the quarantine. He was able to visit with his from a safe distance outside, which seemed to improve his moods. 8. Morbid obesity. 9. Dysphagia. He denies any worsening cough with eating. 10.History of chronic obstructive pulmonary disease, stable without exacerbation. 11.History of methicillin-resistant Staphylococcus aureus. 12.Sleep related hypoventilation. 13.Previous femoral neck fracture. 14.Generalized anxiety disorder. 15.Fatty liver. 16.Gastroesophageal reflux disease. REASON FOR ADMISSION: On the date of admission, this 69-year-old who normally lives at [facility], had a significant weight loss over the past week or 2, not feeling well, not eating well. He had recently been stopped on metformin due to these symptoms and had his routine lab work on 10/26 with notification to myself on 10/27 of increasing BUN up to 118 and creatinine 7.39, potassium 5.5, and bicarb 14. He was arranged for a direct admission, having repeat lab work the next day. Showed no urgent indications for dialysis. Discussion was had with the patient, who declined transfer and also declined CPR. He was given IV fluids, 200 an hour of normal saline. This was adjusted throughout his stay. He never became fluid overloaded or had shortness of breath. He never had any significant urinary residual, so a Marcelino was not placed, but he was incontinent of urine, and his creatinine improved down to 2.3 on discharge. Potassium 3.7, albumin 2.7. Other electrolytes were normal. Bicarb normalized. He denied any pain during his stay or shortness of breath. He did report nausea early on, for which Zofran was ordered, but he had no nausea at the time of discharge. Blood counts were monitored and his platelets were newly found to be low, 107 on admission. He never received any heparin during his stay and they had stabilized at 58 on discharge. White count was normal at 7.9 and hemoglobin was stable at 12.0 on discharge as well. There were no signs of bleeding. Urine was checked due to increased wbc's on his UA and he had culture positive for Citrobacter, so completed a 4-day course of IV antibiotics. He also had postvoid residuals, which had increased up to 350 at the highest yesterday. Blood pressure was coming up. That was why the patient could not be sent back to the longterm on the . Therefore, Norvasc was increased to 10 mg daily, and today on discharge, decision was made to restart his lisinopril 5 mg daily. His highest blood pressure in the last 24 hours was 174/91. He is denying any headache or vision changes. On discharge currently, his blood pressure is 138/83. PHYSICAL EXAMINATION: Discharge Vitals: Temperature 97.7, pulse 74, blood pressure 138/83, respiratory rate 17, his O2 was 97% on room air. General: He is in no acute distress. Heart: Regular rate and rhythm. S1, S2 without murmur. Lungs: Lung sounds are clear to auscultation bilaterally without crackles or wheezes. Abdomen: Nondistended. Positive bowel sounds. Soft, nontender. Extremities: Warm and dry. No edema. He had some weakness on the right side, which is not new. Mental Status: He is alert. He has some aphasia when trying to answer questions, but is able to communicate his needs. DISCHARGE PLANS AND INSTRUCTIONS: He is going back to the [facility]. I will see him on longterm rounds. Discussed with him to switch over to my service currently, which has already been discussed with Dr. Waters, and the patient was agreeable. We will do the BMP and CBC in 1 week. New medications are Norvasc 10 mg daily and lisinopril we will resume at 5 mg daily with a repeat BMP and CBC in 1 week with blood pressure checks twice weekly and notify me if over 180 systolic. We will continue to hold metformin. They can do their Accu-Cheks over there per protocol on longterm return. He needs no further antibiotics, but if any signs or symptoms of UTI, I will repeat a UA if symptoms and we will do the bladder scan once daily for a week and notify Dr. Bower if over 400 mL. COVID testing was done for the return to the longterm, which was negative. Greater than 30 minutes spent on this discharge process. MKA: 11/03/2019 12:40:09 MODL: 11/03/2019 20:18:37 /[id number] MTDD
== END 2019-11-03 13:45 | disposition swing bed (61) | DRG 683 ==
LOC: VM.MS 11:58
PROVIDERS: ADMIT Internal Medicine; ATTEND Internal Medicine
DX: N17.0 Acute kidney failure with tubular necrosis (principal); N39.0 Urinary tract infection, site not specified; E46 Unspecified protein-calorie malnutrition; I10 Essential (primary) hypertension; E11.9 Type 2 diabetes mellitus without complications; D69.6 Thrombocytopenia, unspecified; F32.9 Major depressive disorder, single episode, unspecified; E66.01 Morbid (severe) obesity due to excess calories; J44.9 Chronic obstructive pulmonary disease, unspecified; G47.36 Sleep related hypoventilation in conditions classified elsewhere; F41.1 Generalized anxiety disorder; B96.89 Other specified bacterial agents as the cause of diseases classified elsewhere; R13.10 Dysphagia, unspecified; K76.0 Fatty (change of) liver, not elsewhere classified; K21.9 Gastro-esophageal reflux disease without esophagitis; H91.90 Unspecified hearing loss, unspecified ear; D50.9 Iron deficiency anemia, unspecified; E78.5 Hyperlipidemia, unspecified; M81.0 Age-related osteoporosis without current pathological fracture; E87.5 Hyperkalemia; Z79.84 Long term (current) use of oral hypoglycemic drugs; Z86.73 Personal history of transient ischemic attack (TIA), and cerebral infarction without residual deficits; Z86.14 Personal history of Methicillin resistant Staphylococcus aureus infection; Z11.59 Encounter for screening for other viral diseases; Z87.891 Personal history of nicotine dependence; Z68.26 Body mass index [BMI] 26.0-26.9, adult
CPT/HCPCS: 36415; 51798; 71045; 80048; 80053; 80069; 81001; 82550; 82962; 84484; 85025; 85652; 86140; 87070; 87086; 87088; 87186; 93005; A9270-GY; J0696; J2405; J7030; J7120; U0002